=== PATIENT | male | born 2000 | race American Indian/Alaskan Native ===

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

== ENCOUNTER 2021-08-23 11:10 | Observation (INO) | payer OTHER ==
[~2021-08-23] VITALS: Ht 177.8 cm; Wt 73.7 kg
--- NOTE | 2021-08-23 19:44 | NUR ---
telephone report received from ed rn navi, questions answered. awaiting pt's arrival to [facility] floor.
--- NOTE | 2021-08-23 19:55 | NUR ---
pt is here from the er, independitly to the toilet for void/bm, back to bed, vitals done, rn in room, call light in place, water provided
--- NOTE | 2021-08-23 20:32 | NUR ---
PT ARRIVED TO [facility] AT 1949 AND WAS UP TO USE THE RESTROOM SBA WITH DATA WAREHOUSE ANALYST WHEN THIS RN ENTERED THE ROOM. REVIEWED ADMISSION HX WITH PT AND VS TAKEN AND ENTERED WITH ANGIE IRVING. PT'S BP RUNNING IN THE 90'S SYSTOLIC NOTIFIED PRIMARY RN DONAVON, PT DENIES DIZZINESS OR OTHER SX. ORIENTED PT TO CALL LIGHT, ICEWATER AT BEDSIDE AND PT DENIES FURTHER NEEDS. CALL LIGHT IS CLOSE AND PRIMARY RN DONAVON IS NOW IN THE ROOM.
--- NOTE | 2021-08-23 21:11 | NUR ---
ASSESSMENT COMPLETE, SCHEDULED MEDS GIVEN (SEE EMAR). LIDOCAINE 1% ADDED PER POLICY, SECOND RN JADE VERIFIED BOTH MED AND DOSE. IV SITES X2 WNL, FLUSHES EASILY. pt DENIES NAUSEA, BOWEL TONES ACTIVE. pt DENIES PAIN. SBP IN 90'S, DR ANDREA AWARE. NO NEW ORDERS RECEIVED. WILL CONTINUE TO MONITOR. pt A/OX4, INTERACTS WITH STAFF WNL, CALL LIGHT IN REACH. pt INSTRUCTED TO EITHER VOID VIA URINAL OR HAT, pt VERBALIZED UNDERSTANDING. CALL LIGHT IN REACH.
--- NOTE | 2021-08-23 21:27 | NUR ---
INFORMED BY SECURITY pt AWAKE AND REPORTS PAIN IN IV SITE, THIS RN IN ROOM TO ASSESS, IV SITE WNL, BLOOD RETURN NOTED TO RIGHT AC, POTASSIUM RATE DECREASED TO 75MLS/HR AND RAN CONCURRENTLY WITH NS, pt EDUCATED AND VERBALIZED UNDERSTANDING. WILL CONTINUE TO MONITOR. CALL LIGHT IN REACH.
--- NOTE | 2021-08-23 22:16 | NUR ---
pt resting quietly in bed with eyes closed, rr even and unlabored. no distress noted. iv abx and iv potassium rider infusing as directed. call light in reach, will continue to monitor.
--- NOTE | 2021-08-23 22:40 | NUR ---
second and final 10meq potassium rider infusing, no cahnge to rate, pt currently tolerating well, continues to run with ns concurrently, iv sites x2 remains wnl. no further needs or concerns verbalized, call light in reach.
--- NOTE | 2021-08-23 22:59 | EKG ---
[facility] [address] [place] [address] Signed Sinus tachycardia Left axis deviation Abnormal ECG No previous ECGs available Confirmed by REGINA ANDREA MD ([id number] on 08/23/2021 10:59:05 PM Electronically Signed By: REGINA ANDREA MD 08/23/21 2259 PATIENT NAME: CLAU NAJERA Electrocardiogram DATE OF : [birth year] PHYSICIAN: REGINA ANDREA MD REPORT #: [id number] REPORT IS CONFIDENTIAL AND NOT TO BE RELEASED WITHOUT AUTHORIZATION
--- NOTE | 2021-08-24 00:05 | NUR ---
POTASSIUM RIDER FULLY COMPLETE, MAINTENANCE IV FLUIDS NOW RESUMED. IV SITE REMAISN WNL, pt DENIES NEEDS OR CONCERNS. ON RA, RR EVEN AND UNLABORED. CALL LIGHT IN REACH.
--- NOTE | 2021-08-24 02:10 | NUR ---
IN TO GET VITALS, PT DENIES NEED TO VOID AND DID NOT WANT TO TRY, ENCURAGED PT TO TRY AND LET US KNOW, NO FURTHER NEEDS AT THIS TIME
--- NOTE | 2021-08-24 02:25 | NUR ---
IN ROOM TO COMPELTE ASSESSMENT, VSS. HR IMPROVED AND WNL AND pt REMAINS AFEBRILE. UPON ENTERING ROOM, pt AWAKE. FACIAL LIKE GRIMACING NOTED, WHEN ASKED IF pt WAS IN PAIN OR HAD NAUSEA, pt DENIED BOTH, STATING, "I'M DROWSY. WHEN I WAKE UP, I'M DROWSY". NO ACUTE CHANGES. LUNG SOUNDS CLEAR, DIMINISHED IN LEFT LOWER LOBE. NO SOB NOTED, RR EVEN AND UNLABORED. WHEN ASKED IF pt HAD TO VOID, pt INITIALLY DENIED NEED, WHEN INSTRUCTED ON HOW TO USE CALL LIGHT WHEN THE NEED TO VOID OCCURS, pt THEN STATES, "WELL I CAN'T WITH THE IV". pt EDUCATED IV POLE IS MOBILE AND pt WAS THEN ASSISTED TO BATHROOM SBA TO VOID, 400MLS DARKENED YELLOW URINE NOTED. pt BACK TO BED, CALL LIGHT IN REACH. IV SITES X2 WNL. NO FURTHER NEEDS OR CONCERNS VERBALIZED, WILL CONTINUE TO MONITOR.
--- NOTE | 2021-08-24 04:31 | NUR ---
pt RESTING IN BED, ON RA. RR EVEN AND UNLABORED. NO DISTRESS OR OUTWARD S/SX OF PAIN NOTED. WILL MONITOR FOR CHANGES. CALL LIGHT IN REACH. IV FLUIDS INFUSING DIRECTED, IV SITE WNL.
--- NOTE | 2021-08-24 06:06 | NUR ---
pt AWAKE AND RESTING IN BED, ON RA. RR EVEN AND UNLABORED, NO DISTRESS NOTED. IV SITE WNL, PUMP CLEARED AND FLUIDS INFUSING DIRECTED. WHEN ASKED IF pt NEEDED ANYTHING ELSE, pt STATES, "SOME ORANGE JUICE WOULD BE LISA, IT MEANS THAT'LL BE COOL IN HIPPIE". JUICE PROVIDED AND CALL LIGHT IN REACH. pt DENIES NEED TO VOID AT THIS TIME, WILL MONITOR.
--- NOTE | 2021-08-24 07:25 | NUR ---
REPORT RECIEVED FROM NIGHT MARTITA RAPHAEL - PT RESTING IN BED, RESPONDS TO VOICE BUT KEEPS EYES CLOSED. PT DENIES PAIN, REQUESTS ORANGE JUICE. CALL LIGHT IN REACH.
--- NOTE | 2021-08-24 08:31 | NUR ---
pt is up in chair. call light within reach
--- NOTE | 2021-08-24 08:40 | NUR ---
RN IN ROOM TO ADMINISTER SCHEDULED MEDICATIONS. PT UP IN CHAIR AWAKE UPON ENTERING THE ROOM. PT RATES PAIN A 4/10 - UPPER BODY "SORE". SCHEDULED PAIN MED PROVIDED, PT DENIES FURTHER COVERAGE FOR THIS. IV SITES TOLERATING ABX AND FLUIDS WITHOUT DIFFICULTY. PRODUCTIVE COUGH NOTED- THICK YELLOW SPUTUM. PT AMBULATES TO BATHROOM AND VOIDS WITHOUT PAIN - FLUSHED - UNABLE TO ASSESS. PT BACK TO BED, CALL LIGHT IN REACH.
[2021-08-24] MEDS ORDERED: LEVOFLOXACIN750 MG PO (09:12)
--- NOTE | 2021-08-24 09:23 | NUR ---
pt is laying in bed resting. nurse notified about B/P. i&o and vs charted. call light within reach no further tasks at this time
--- NOTE | 2021-08-24 11:51 | NUR ---
I was able to visit with Nikia prior to discharge. Nikia expresses no concerns with his discharge plan to discharge home with his mother. He feels that his mother will be able to help with his home care needs. He expresses no concerns with ability to purchase or pick-up needed medications, he also denies concerns about other home needs such as food and heat. Nikia denies concerns with his patient care while here in the hospital. He is ready to be discharged home.
--- NOTE | 2021-08-24 12:01 | NUR ---
rn in room to provide dc education. pt increasingly aggitated upon entering room - speaking rapidly and uncoordinated about pain medications and staff stereotyping him for his generation. rn attempted to clarify and address concerns several times but pt refuses to talk and state to "leave me alone". student nurse also in room as witness. dc instructions provided, iv's dc'd. pt provided lunch and waiting for ride.
== END 2021-08-24 12:37 | disposition home or self-care (01) ==
LOC: ED 11:10 → MS 11:12
PROVIDERS: ADMIT Internal Medicine; ATTEND Internal Medicine
DX: J18.9 Pneumonia, unspecified organism (principal); M21.922 Unspecified acquired deformity of left upper arm; E87.6 Hypokalemia; Z20.822 Contact with and (suspected) exposure to COVID-19; E86.0 Dehydration
CPT/HCPCS: 36415; 71045; 80048; 80053; 83605; 83735; 85007; 85025; 87502; 93005; 93010; 96375; 96376; A9270; C9113; C9803; G0378; G0379; J0456; J0696; J1170; J1885; J1956; J2405; J3480; J7030; J7060; J7120; U0003

== ENCOUNTER 2024-12-30 07:42 | Emergency (ER) | payer OTHER ==
[~2024-12-30] VITALS: Ht 177.8 cm; Wt 66.0 kg
[~2024-12-30 07:42] MED LIST changes: +LEVOFLOXACIN750 MG PO
[2024-12-30 08:07] LABS: BASOPHILS 0.5 % (0.2-1.2); EOSINOPHILS 0 % (0.8-7.0); LYMPHOCYTES 12.1 % (21.8-53.1); MCH 28.4 PG (25.7-32.2); MCHC 33.5 g/dL (32.3-36.5); MCV 85.0 fL (79.0-92.2); MONOCYTES 7.7 % (5.3-12.2); NEUTROPHILS 79.4 % (34.0-67.9); RBC 5.73 M/uL (4.63-6.08)
[2024-12-30 08:34] LABS: ALT (SGPT) 26.0 U/L (14-59); AST (SGOT) 16.0 U/L (15-37); GLOMERULAR FILTRATION RATE,EST 122.0 mL/min (>60); PROTEIN, TOTAL 8.3 g/dL (6.4-8.2); UREA NITROGEN 12.0 mg/dL (7-18)
[2024-12-30] MEDS ORDERED: SODIUM CHLORIDE 0.9% 1,000 ML IV PRN (08:45)
[2024-12-30 08:46] LABS: BLOOD/HGB, URINE NEGATIVE (Negative); KETONE, URINE TRACE (Negative); LEUK ESTERASE, URINE NEGATIVE (negative); NITRITE, URINE NEGATIVE (negative)
[2024-12-30 08:55] LABS: BACTERIA, URINE NONE SEEN /hpf (negative); CASTS, URINE NONE SEEN \\lpf; CRYSTALS, URINE NONE SEEN (0-1+); EPITHELIAL CELLS, URINE 0 /lpf (0-1+); REFLEX CULTURE, URINE No (No)
[2024-12-30 09:07] LABS: AMPHETAMINES, URINE POSITIVE (NEGATIVE); BARBITURATES, URINE NEGATIVE (NEGATIVE); BENZODIAZEPINE, URINE NEGATIVE (NEGATIVE); CANNABINOID, URINE POSITIVE (NEGATIVE); COCAINE, URINE NEGATIVE (NEGATIVE); ECSTASY, URINE NEGATIVE (NEGATIVE); FENTANYL, URINE NEGATIVE (NEGATIVE); METHADONE, URINE NEGATIVE (NEGATIVE); OPIATES, URINE NEGATIVE (NEGATIVE); OXYCODONE, URINE NEGATIVE (NEGATIVE); PHENCYCLIDINE, URINE NEGATIVE (NEGATIVE)
[2024-12-30] MEDS ORDERED: HYDROXYZINE HCL25 MG PO (09:25)
[2024-12-30] MEDS ORDERED: ONDANSETRON ODT4 MG PO (09:25)
[2024-12-30 10:19] VITALS: BP 138/89
== END 2024-12-30 10:19 | disposition home or self-care (01) ==
LOC: ED 07:42
PROVIDERS: Emergency Medicine
DX: R11.10 Vomiting, unspecified (principal); F41.9 Anxiety disorder, unspecified; F15.90 Other stimulant use, unspecified, uncomplicated; F12.90 Cannabis use, unspecified, uncomplicated
CPT/HCPCS: 36415; 80053; 80307; 81001; 83735; 85025; 96361; 96374; 99284-25; J2405; J7030